=== PATIENT | female | born 1980 | race Two or more races ===

== ENCOUNTER 2022-01-31 11:28 | Emergency (ER) | payer SELFPAY ==
[~2022-01-31] VITALS: Ht 157.5 cm; Wt 82.6 kg
[2022-01-31 12:00] VITALS: BP 141/74
[2022-01-31] MEDS ORDERED: KETOROLAC TROMETH 60MG/2ML VIAL IM ONE (12:15)
[2022-01-31] MEDS ORDERED: IBUP800T27 PO (12:42)
[2022-01-31] MEDS ORDERED: METH750T22 PO (12:42)
== END 2022-01-31 12:52 | disposition home or self-care (01) ==
LOC: ER 11:28
DX: M54.42 Lumbago with sciatica, left side (principal)
CPT/HCPCS: 96372; 99283; J1885